=== PATIENT | male | born 1995 | race Caucasian/White ===

== ENCOUNTER 2018-05-26 10:21 | Emergency (ER) | payer SELFPAY ==
[2018-05-26] MEDS ORDERED: NA CHLORIDE 0.9% 1,000 ML ONE (10:47)
[2018-05-26 11:02] LABS: Absolute Lymphocytes (CBC) 1.4 K/uL (0.7-4.9); Absolute Monocytes 0.5 K/uL (0.1-1.3); Absolute Neutrophil 4.7 K/uL (1.8-8.0); Basophils % 0.4 % (0-1.3); Eosinophils % 1.9 % (0-4.4); Lymphocytes % 19.9 % (15.3-44.8); MCH 31.4 pg (27.0-35.0); MCV 91.1 fL (80-100); MPV 9.5 fL (7.6-11.3); Monocytes % 7.8 % (3.3-12.3); RBC Red Blood Cell Count 4.83 M/uL (4.33-5.43)
--- NOTE | 2018-05-26 11:04 | RAD REPORT ---
EXAM DESCRIPTION: RAD - Chest Single View - 05/26/2018 10:51 am CLINICAL HISTORY: COUGH Chest pain. COMPARISON: No comparisons FINDINGS: Portable technique limits examination quality. The lungs are grossly clear. The heart is normal in size. No displaced fractures. IMPRESSION: No acute intrathoracic process suspected.
[2018-05-26 11:17] LABS: ALT/SGPT 20 U/L (12-78); AST/SGOT 13 U/L (15-37); Albumin 4.1 g/dL (3.4-5.0); Alkaline Phosphatase 73 U/L (45-117); BUN Blood Urea Nitrogen 15 mg/dL (7-18); Bicarbonate 25 mmol/L (21-32); Bilirubin Direct 0.2 mg/dL (0-0.2); Bilirubin Total 0.6 mg/dL (0.2-1.0); CKMB Creatine Kinase MB < 1.0 ng/mL (0.3-3.6); Creatine Phosphokinase 50 U/L (39-308); Glucose Level 90 mg/dL (74-106); Magnesium 2.3 mg/dL (1.8-2.4); Potassium 3.7 mmol/L (3.5-5.1); Protein, Total 7.4 g/dL (6.4-8.2); Sodium Level 137 mmol/L (136-145); Troponin (Emerg Dept Use Only) < 0.02 ng/mL (0.0-0.045)
--- NOTE | 2018-05-26 11:22 | EDPHYS ---
Physician Documentation [facility] Name: Jd Baker Age: 23 yrs Sex: Male : 1995 Arrival Date: 05/26/2018 Time: 10:21 Bed 17 Private MD: ED Physician Bert Wilkinson HPI: 05/26 10:27 This 23 yrs old Male presents to ER via EMS with complaints of Heat Exposure. ro 10:27 The patient presents with an injury, pain, swelling, tenderness. The complaints affect ro the left Achilles. Context: The problem was sustained at home, resulted from an unknown cause. Onset: The symptoms/episode began/occurred 2 month(s) ago. Modifying factors: The symptoms are alleviated by elevating leg, remaining still, the symptoms are aggravated by movement, bending knee. Associated signs and symptoms: The patient has no apparent associated signs or symptoms. Severity of symptoms: At their worst the symptoms were mild, moderate, in the emergency department the symptoms are unchanged. Historical: - Allergies: 10:25 No Known Allergies; hb - Home Meds: 10:25 None [Active]; hb - PMHx: 10:25 None; hb - PSHx: 10:25 None; hb - Immunization history:: Adult Immunizations up to date. - Social history:: Smoking status: Patient/guardian denies using tobacco. - Ebola Screening: : No symptoms or risks identified at this time. - Family history:: not pertinent. ROS: 11:20 Constitutional: Negative for fever, chills, and weight loss, Eyes: Negative for injury, ro pain, redness, and discharge, ENT: Negative for injury, pain, and discharge, Neck: Negative for injury, pain, and swelling, Cardiovascular: Negative for chest pain, palpitations, and edema, Respiratory: Negative for shortness of breath, cough, wheezing, and pleuritic chest pain, Abdomen/GI: Negative for abdominal pain, nausea, vomiting, diarrhea, and constipation, Back: Negative for injury and pain, : Negative for injury, bleeding, discharge, and swelling, MS/Extremity: Negative for injury and deformity, Skin: Negative for injury, rash, and discoloration, Psych: Negative for depression, anxiety, suicide ideation, homicidal ideation, and hallucinations, Allergy/Immunology: Negative for hives, rash, and allergies, Endocrine: Negative for neck swelling, polydipsia, polyuria, polyphagia, and marked weight changes, Hematologic/Lymphatic: Negative for swollen nodes, abnormal bleeding, and unusual bruising. 11:20 Neuro: Positive for dizziness, weakness. Exam: 11:20 Constitutional: This is a well developed, well nourished patient who is awake, alert, ro and in no acute distress. Head/Face: Normocephalic, atraumatic. Eyes: Pupils equal round and reactive to light, extra-ocular motions intact. Lids and lashes normal. Conjunctiva and sclera are non-icteric and not injected. Cornea within normal limits. Periorbital areas with no swelling, redness, or edema. ENT: Nares patent. No nasal discharge, no septal abnormalities noted. Tympanic membranes are normal and external auditory canals are clear. Oropharynx with no redness, swelling, or masses, exudates, or evidence of obstruction, uvula midline. Mucous membranes moist. Neck: Trachea midline, no thyromegaly or masses palpated, and no cervical lymphadenopathy. Supple, full range of motion without nuchal rigidity, or vertebral point tenderness. No Meningismus. Chest/axilla: Normal chest wall appearance and motion. Nontender with no deformity. No lesions are appreciated. Cardiovascular: Regular rate and rhythm with a normal S1 and S2. No gallops, murmurs, or rubs. Normal PMI, no JVD. No pulse deficits. Respiratory: Lungs have equal breath sounds bilaterally, clear to auscultation and percussion. No rales, rhonchi or wheezes noted. No increased work of breathing, no retractions or nasal flaring. Abdomen/GI: Soft, non-tender, with normal bowel sounds. No distension or tympany. No guarding or rebound. No evidence of tenderness throughout. Back: No spinal tenderness. No costovertebral tenderness. Full range of motion. Male : Normal genitalia with no discharge or lesions. Skin: Warm, dry with normal turgor. Normal color with no rashes, no lesions, and no evidence of cellulitis. MS/ Extremity: Pulses equal, no cyanosis. Neurovascular intact. Full, normal range of motion. Neuro: Awake and alert, GCS 15, oriented to person, place, time, and situation. Cranial nerves II-XII grossly intact. Motor strength 5/5 in all extremities. Sensory grossly intact. Cerebellar exam normal. Normal gait. Psych: Awake, alert, with orientation to person, place and time. Behavior, mood, and affect are within normal limits. 11:20 Musculoskeletal/extremity: DVT Exam: No signs of deep vein thrombosis. no pain, no swelling, no tenderness, negative Homans' sign noted on exam, no appreciated bluish discoloration, no erythema, no increased warmth. Vital Signs: 10:24 BP 108 / 79; Pulse 72; Resp 16; Temp 98.1; Pulse Ox 100% on R/A; Pain 0/10; hb 11:21 BP 108 / 83; Pulse 66; Resp 14; Pulse Ox 100% on R/A; hb MDM: 10:24 Patient medically screened. [facility] 05/26 10:27 Order name: Basic Metabolic Panel; Complete Time: 11:19 [facility] 05/26 10:27 Order name: CBC with Diff; Complete Time: 11:19 [facility] 05/26 10:27 Order name: Ckmb; Complete Time: 11:19 [facility] 05/26 10:27 Order name: CPK; Complete Time: 11:19 [facility] 05/26 10:27 Order name: LFT's; Complete Time: 11:19 05/26 10:27 Order name: Magnesium; Complete Time: 11:19 [facility] 05/26 10:27 Order name: Troponin (emerg Dept Use Only); Complete Time: 11:19 [facility] 05/26 10:27 Order name: XRAY Chest (1 view); Complete Time: 11:19 [facility] 05/26 10:27 Order name: EKG; Complete Time: 10:27 [facility] 05/26 10:27 Order name: Cardiac monitoring; Complete Time: 10:51 [facility] 05/26 10:27 Order name: EKG - Nurse/Tech; Complete Time: 12:08 ro 05/26 10:27 Order name: IV Saline Lock; Complete Time: 10:36 [facility] 05/26 10:27 Order name: Labs collected and sent; Complete Time: 10:36 [facility] 05/26 10:27 Order name: O2 Per Protocol; Complete Time: 10:36 [facility] 05/26 10:27 Order name: O2 Sat Monitoring; Complete Time: 10:36 [facility] 05/26 10:27 Order name: Wound dressing; Complete Time: 10:31 [facility] Administered Medications: 10:31 CANCELLED (Duplicate Order): fentaNYL (PF) 25 mcg IVP once ro 10:31 CANCELLED (Duplicate Order): fentaNYL (PF) 25 mcg IVP once ro 10:31 CANCELLED (Duplicate Order): Zofran 4 mg IVP once; over 2 minutes ro 10:33 CANCELLED (Duplicate Order): NS 0.9% 500 ml IV at bolus once ro 10:50 Drug: NS 0.9% 1000 ml Route: IV; Rate: 1 bolus; Site: left antecubital; hb 11:45 Follow up: Response: No adverse reaction; IV Status: Completed infusion hb Disposition: 05/26/18 11:21 Discharged to Home. Impression: Heat fatigue, transient, Heat exhaustion, unspecified. - Condition is Stable. - Discharge Instructions: Fatigue, Heat Exhaustion Information. - Medication Reconciliation Form, Thank You Letter, Antibiotic Education, Prescription Opioid Use form. - Follow up: Private Physician; When: 2 - 3 days; Reason: Recheck today's complaints, Continuance of care, Re-evaluation by your physician. - Problem is new. - Symptoms have improved. Signatures: Dispatcher [employer] [facility] Bert Wilkinson MD MD cha Baxter, Heather, RN RN Corrections: (The following items were deleted from the chart) 10:31 10:27 fentaNYL (PF) 25 mcg IVP once ordered. ro ro 10:31 10:27 fentaNYL (PF) 25 mcg IVP once ordered. ro ro 10:31 10:27 Zofran 4 mg IVP once; over 2 minutes ordered. ro ro 10:32 10:27 Constitutional: Negative for fever, chills, and weight loss, Eyes: Negative for ro injury, pain, redness, and discharge, ENT: Negative for injury, pain, and discharge, Neck: Negative for injury, pain, and swelling, Cardiovascular: Negative for chest pain, palpitations, and edema, ro 10:33 10:27 NS 0.9% 500 ml IV at bolus once ordered. [facility] 10:38 10:27 Extremity Venous [employer]+[email or web address].[email or web address] ordered. [facility] 11:46 11:21 05/26/2018 11:21 Discharged to Home. Impression: Heat fatigue, transient; Heat hb exhaustion, unspecified. Condition is Stable. Forms are Medication Reconciliation Form, Thank You Letter, Antibiotic Education, Prescription Opioid Use. Follow up: Private Physician; When: 2 - 3 days; Reason: Recheck today's complaints, Continuance of care, Re-evaluation by your physician. Problem is new. Symptoms have improved. ro
--- NOTE | 2018-05-26 11:22 | ER ---
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 Initial BP 98/56, HR 110, improved to BP 111/61, HR 82 after NS 500ml bolus. BGL 115. Transition of care: patient was not received from another setting of care. Onset of symptoms was May 26, 2018. Risk Assessment: Do you want to hurt yourself or someone else? Patient reports no desire to harm self or others. Initial Sepsis Screen: Does the patient meet any 2 criteria? No. Patient's initial sepsis screen is negative. Does the patient have a suspected source of infection? No. Patient's initial sepsis screen is negative. Care prior to arrival: Medication(s) given: Normal saline infusion, 500 mL, IV initiated. 20 GA, in the right hand, Glucose check: 115. 10:21 Method Of Arrival: EMS: [facility] 10:21 Acuity: AMOR 3 hb Triage Assessment: 10:25 General: Appears in no apparent distress. Behavior is calm, cooperative. Pain: Denies hb pain. EENT: No signs and/or symptoms were reported regarding the EENT system. Neuro: Level of Consciousness is awake, alert, obeys commands, Oriented to person, place, time, situation. Cardiovascular: Heart tones S1 S2 present Capillary refill < 3 seconds Patient's skin is warm and dry. Respiratory: Airway is patent Respiratory effort is even, unlabored, Respiratory pattern is regular, symmetrical, Breath sounds are clear bilaterally. GI: No signs and/or symptoms were reported involving the gastrointestinal system. : No signs and/or symptoms were reported regarding the genitourinary system. Derm: Skin is pink, warm \T\ dry. Musculoskeletal: No signs and/or symptoms reported regarding the musculoskeletal system. Historical: - Allergies: 10:25 No Known Allergies; hb - Home Meds: 10:25 None [Active]; hb - PMHx: 10:25 None; hb - PSHx: 10:25 None; hb - Immunization history:: Adult Immunizations up to date. - Social history:: Smoking status: Patient/guardian denies using tobacco. - Ebola Screening: : No symptoms or risks identified at this time. - Family history:: not pertinent. Screenin:25 Abuse screen: Denies threats or abuse. Denies injuries from another. Nutritional hb screening: No deficits noted. Tuberculosis screening: No symptoms or risk factors identified. Fall Risk None identified. Assessment: 11:18 Reassessment: Patient appears in no apparent distress at this time. Patient and/or hb family updated on plan of care and expected duration. Pain level reassessed. Patient is alert, oriented x 3, equal unlabored respirations, skin warm/dry/pink. Patient denies pain at this time. Patient states feeling better. Vital Signs: 10:24 BP 108 / 79; Pulse 72; Resp 16; Temp 98.1; Pulse Ox 100% on R/A; Pain 0/10; hb 11:21 BP 108 / 83; Pulse 66; Resp 14; Pulse Ox 100% on R/A; hb ED Course: 10:21 Patient arrived in ED. hb 10:24 Triage completed. hb 10:24 Bert Wilkinson MD is Attending Physician. ro 10:24 Arm band placed on left wrist. hb 10:30 Patient has correct armband on for positive identification. Bed in low position. Call hb light in reach. Side rails up X 1. 10:30 Maintain EMS IV. Dressing intact. Good blood return noted. Site clean \T\ dry. Gauge \T\ hb site: 20g RIGHT Hand. 10:33 Initial lab(s) drawn, by me, sent to lab. dh3 10:39 Mackenzie Vega, RN is Primary Nurse. hb 10:48 X-ray completed. Portable x-ray completed in exam room. Patient tolerated procedure jb2 well. 10:51 XRAY Chest (1 view) In Process Unspecified. EDMS 11:01 EKG done, by urgent care technician. reviewed by Bert Wilkinson MD. at1 11:45 No provider procedures requiring assistance completed. IV discontinued, intact, hb bleeding controlled, No redness/swelling at site. Pressure dressing applied. Administered Medications: 10:31 CANCELLED (Duplicate Order): fentaNYL (PF) 25 mcg IVP once ro 10:31 CANCELLED (Duplicate Order): fentaNYL (PF) 25 mcg IVP once ro 10:31 CANCELLED (Duplicate Order): Zofran 4 mg IVP once; over 2 minutes ro 10:33 CANCELLED (Duplicate Order): NS 0.9% 500 ml IV at bolus once ro 10:50 Drug: NS 0.9% 1000 ml Route: IV; Rate: 1 bolus; Site: left antecubital; hb 11:45 Follow up: Response: No adverse reaction; IV Status: Completed infusion hb Outcome: 11:21 Discharge ordered by . [facility] 11:45 Discharged to home ambulatory. hb 11:45 Condition: stable 11:45 Discharge instructions given to patient, Instructed on discharge instructions, follow up and referral plans. medication usage, Demonstrated understanding of instructions, follow-up care, medications. 11:46 Patient left the ED. Signatures: Dispatcher [employer] EDMS Bert Wilkinson MD MD cha Buechter, Jesse jb2 Inez Jeffers, digester capper EKG Tat1 Mackenzie Vega, EVON RN Delphine Henry 3
--- NOTE | 2018-05-26 19:25 | EKG ---
Test Date: 2018-05-26 Test Time: 10:57:54 Bending Roll Hand: TAMIA MEASUREMENT RESULTS: Intervals: Rate: 70 AR: 140 QRSD: 94 QT: 386 QTc: 416 Willis: P: 79 AR: 140 QRS: 95 T: 70 INTERPRETIVE STATEMENTS: Sinus rhythm with occasional premature ventricular complexes Rightward axis Borderline ECG No previous ECG available for comparison Electronically Signed On 05-26-18 19:22:53 CDT by Kimani Hayward
== END 2018-05-26 11:46 | disposition home or self-care (01) ==
LOC: ER 10:21
DX: T67.5XXA Heat exhaustion, unspecified, initial encounter (principal); T67.6XXA Heat fatigue, transient, initial encounter; X58.XXXA Exposure to other specified factors, initial encounter; Y93.9 Activity, unspecified; Y92.69 Other specified industrial and construction area as the place of occurrence of the external cause; Y99.0 Civilian activity done for income or pay
CPT/HCPCS: 36415; 71045; 80048; 80076; 82550; 82553; 83735; 84484; 85025; 93005; 96360; 99284; J7030

== ENCOUNTER 2024-12-21 21:31 | Emergency (ER) | payer SELFPAY ==
[2024-12-21] MEDS ORDERED: predniSONE 20 MG TAB ONE (22:34)
[2024-12-21] MEDS ORDERED: DIPHENHYDRAMINE 25 MG TAB/CAP ONE (22:34)
[2024-12-21] MEDS ORDERED: FAMOTIDINE 20 MG TAB ONE (22:35)
[2024-12-21 23:34] LABS: Influenza A Ag Negative; Influenza B Ag Negative; SARS-CoV-2 Antigen Rapid Res Negative (Negative)
--- NOTE | 2024-12-21 23:48 | ER ---
Nurse's Notes [facility] Name: Jd Baker Age: 29 yrs Sex: Male : 1995 Arrival Date: 12/21/2024 Time: 21:31 Bed 11 Private MD: Diagnosis: Viral infection, unspecified;Rash and other nonspecific skin eruption Presentation: 12/21 21:46 Chief complaint: Patient states: SORE THROAT, COUGH AND RUNNY NOSE THAT BEGAN SATURDAY. dd2 RED RASH TO NECK AND CHEST THAT HE NOTICED TODAY. DENIES PAIN OR ITCHING. DENIES TAKING ANY MEDICATIONS. Coronavirus screen: cough unrelated to allergies, runny nose, sore throat. Ebola Screen: No symptoms or risks identified at this time. Initial Sepsis Screen: Does the patient meet any 2 criteria? No. Patient's initial sepsis screen is negative. Does the patient have a suspected source of infection? No. Patient's initial sepsis screen is negative. Risk Assessment: Do you want to hurt yourself or someone else? Patient reports no desire to harm self or others. Onset of symptoms was December 20, 2024. 21:46 Method Of Arrival: Ambulatory dd2 21:46 Acuity: AMOR 3 dd2 Triage Assessment: 21:50 General: Appears in no apparent distress. Behavior is calm, cooperative, appropriate dd2 for age. Pain: Complains of pain in throat Pain does not radiate. Pain currently is 3 out of 10 on a pain scale. EENT: Throat is reddened Reports difficulty swallowing pain when swallowing Pain is 3 out of 10 on a pain scale. Neuro: No deficits noted. Parks Agitation-Sedation Scale (RASS): 0 - Alert and Calm Level of Consciousness is awake, alert, obeys commands, Oriented to person, place, time, situation, Appropriate for age. Cardiovascular: No deficits noted. JVD is absent Patient's skin is warm and dry. Respiratory: Reports cough that is productive, Airway is patent Respiratory effort is even, unlabored, Respiratory pattern is regular, symmetrical. GI: No deficits noted. No signs and/or symptoms were reported involving the gastrointestinal system. Abdomen is flat, Abd is soft and non tender X 4 quads. : No deficits noted. No signs and/or symptoms were reported regarding the genitourinary system. Derm: Rash noted that is red, on chest and neck. Musculoskeletal: No deficits noted. No signs and/or symptoms reported regarding the musculoskeletal system. Circulation, motion, and sensation intact. Range of motion: intact in all extremities. Historical: - Allergies: 21:50 No Known Allergies; dd2 - PMHx: 21:50 None; dd2 - PSHx: 21:50 None; dd2 - Immunization history:: Adult Immunizations up to date, Client reports receiving the 2nd dose of the Covid vaccine, Client reports receiving the 1st dose of the Covid vaccine, Flu vaccine is not up to date. Patient has never been vaccinated. - Infectious Disease History:: Denies. - Social history:: Smoking status: Reported history of juuling and/or vaping. Screenin:13 [facility] ED Fall Risk Assessment (Adult) History of falling in the last 3 months, dd2 including since admission No falls in past 3 months (0 pts) Confusion or Disorientation No (0 pts) Intoxicated or Sedated No (0 pts) Impaired Gait No (0 pts) Mobility Assist Device Used No (0 pt) Altered Elimination No (0 pt) Score/Fall Risk Level 0 - 2 = Low Risk Oriented to surroundings, Maintained a safe environment, Educated pt \T\ family on fall prevention, incl call for assistance when getting out of bed, Assessed \T\ reinforced patient's understanding of fall precautions, Hourly rounding (assess needs \T\ fall precautionary measures) done. Abuse screen: Denies threats or abuse. Denies injuries from another. Nutritional screening: No deficits noted. Tuberculosis screening: No symptoms or risk factors identified. Assessment: 22:13 Reassessment: SEE TRIAGE ASSESSMENT FOR FULL ASSESSMENT. dd2 23:43 Reassessment: Patient appears in no apparent distress at this time. No changes from bm8 previously documented assessment. Patient and/or family updated on plan of care and expected duration. Pain level reassessed. Patient is alert, oriented x 3, equal unlabored respirations, skin warm/dry/pink. Patient denies pain at this time. General: Appears in no apparent distress. comfortable, Behavior is calm, cooperative, appropriate for age. Pain: Denies pain. Neuro: No deficits noted. Level of Consciousness is awake, alert, obeys commands, Oriented to person, place, time, situation, Appropriate for age. Cardiovascular: Denies chest pain, Capillary refill < 3 seconds in bilateral fingers Patient's skin is warm and dry. Respiratory: Airway is patent Respiratory effort is even, unlabored, Respiratory pattern is regular, symmetrical. Derm: Rash noted that is red. Vital Signs: 21:46 BP 120 / 83; Pulse 89; Resp 16; Temp 99.2(O); Pulse Ox 99% on R/A; Weight 61.23 kg; dd2 Height 5 ft. 8 in. ; 23:43 BP 122 / 68; Pulse 63; Resp 18; Temp 99.2; Pulse Ox 99% ; Pain 0/10; bm8 21:46 Body Mass Index 20.53 (61.23 kg, 172.72 cm) dd2 23:43 Pain Scale: Adult bm8 Ashley Coma Score: 22:13 Eye Response: spontaneous(4). Motor Response: obeys commands(6). Verbal Response: dd2 oriented(5). Total: 15. 23:43 Eye Response: spontaneous(4). Motor Response: obeys commands(6). Verbal Response: bm8 oriented(5). Total: 15. ED Course: 21:38 Patient arrived in ED. gm2 21:38 Katherin Mayorga PA-C is PHCP. sb4 21:38 Sylvester Gaspar MD is Attending Physician. sb4 21:50 Triage completed. dd2 21:50 Arm band placed on right wrist. dd2 22:12 JEFE MERCADO, RN is Primary Nurse. dd2 22:13 Patient has correct armband on for positive identification. Bed in low position. Call dd2 light in reach. Side rails up X 1. Client placed on continuous cardiac and pulse oximetry monitoring. NIBP monitoring applied. Door closed. Noise minimized. Pillow given. Verbal reassurance given. 22:13 No provider procedures requiring assistance completed. Patient maintains SpO2 dd2 saturation greater than 95% on room air. 23:04 COVID swab sent to lab. Flu and/or RSV swab sent to lab. Strep swab sent to lab. bm8 23:43 Provided Education on: post er care. bm8 23:43 Patient did not have IV access during this emergency room visit. bm8 Administered Medications: 22:54 Drug: diphenhydrAMINE PO 25 mg PO once Route: PO; bm8 23:35 Follow up: Response: No adverse reaction bm8 22:54 Drug: predniSONE PO 20 mg PO once Route: PO; bm8 23:35 Follow up: Response: No adverse reaction bm8 22:54 Drug: Famotidine PO 20 mg PO once Route: PO; bm8 23:35 Follow up: Response: No adverse reaction bm8 Medication: 22:13 VIS not applicable for this client. dd2 Outcome: 23:43 Discharged to home ambulatory, bm8 23:43 Condition: stable 23:43 Discharge instructions given to patient, Instructed on discharge instructions, follow up and referral plans. no drinking with medication, no driving heavy equipment, medication usage, safety practices, Demonstrated understanding of instructions, follow-up care, medications, Prescriptions given X 23:47 Discharge ordered by MD. sb4 23:50 Prescriptions given X 3, bm8 23:50 Patient left the ED. 8 Signatures: Katherin Mayorga PA-C PA-C sb4 Helga Welch gm2 Fausto Navarro RN RN bm8 JEFE MERCADO RN RN dd2
--- NOTE | 2024-12-21 23:48 | EDPHYS ---
Physician Documentation [facility] Name: Jd Baekr Age: 29 yrs Sex: Male : 1995 Arrival Date: 12/21/2024 Time: 21:31 Bed 11 Private MD: ED Physician Sylvester Gaspar HPI: 12/21 22:37 This 29 yrs old Male presents to ER via Ambulatory with complaints of Runny Nose, Rash, sb4 Cough. 22:37 Patient reports sore throat, mild cough, and runny nose for the past few days. He sb4 states that he noticed a rash on his chest and upper neck this evening. Denies any fever. He is concerned for measles or scarlet fever so came to the ED for further evaluation. States the rash does not itch. Denies any new detergents, lotions, clothing.. Historical: - Allergies: 21:50 No Known Allergies; dd2 - PMHx: 21:50 None; dd2 - PSHx: 21:50 None; dd2 - Immunization history:: Adult Immunizations up to date, Client reports receiving the 2nd dose of the Covid vaccine, Client reports receiving the 1st dose of the Covid vaccine, Flu vaccine is not up to date. Patient has never been vaccinated. - Infectious Disease History:: Denies. - Social history:: Smoking status: Reported history of juuling and/or vaping. ROS: 22:37 Constitutional: Negative for fever, chills, and weight loss, sb4 22:37 ENT: Positive for sore throat, 22:37 Respiratory: Positive for cough, 22:37 Skin: Positive for rash, of the back, chest, abdomen and neck, 22:37 All other systems are negative, Exam: 22:38 Constitutional: This is a well developed, well nourished patient who is awake, alert, sb4 and in no acute distress. Head/Face: Normocephalic, atraumatic. Eyes: Extra-ocular motions intact. Periorbital areas with no swelling, redness, or edema. Respiratory: No increased work of breathing, no retractions or nasal flaring. 22:38 ENT: Posterior pharynx: erythema, that is moderate, exudate, is not appreciated, 22:38 Skin: rash can be described as macular, on the abdomen and back and chest and neck, Vital Signs: 21:46 BP 120 / 83; Pulse 89; Resp 16; Temp 99.2(O); Pulse Ox 99% on R/A; Weight 61.23 kg; dd2 Height 5 ft. 8 in. ; 23:43 BP 122 / 68; Pulse 63; Resp 18; Temp 99.2; Pulse Ox 99% ; Pain 0/10; bm8 21:46 Body Mass Index 20.53 (61.23 kg, 172.72 cm) dd2 23:43 Pain Scale: Adult bm8 Ashley Coma Score: 22:13 Eye Response: spontaneous(4). Motor Response: obeys commands(6). Verbal Response: dd2 oriented(5). Total: 15. 23:43 Eye Response: spontaneous(4). Motor Response: obeys commands(6). Verbal Response: bm8 oriented(5). Total: 15. MDM: 21:39 Medical Screening Exam initiated sb4 23:47 Data reviewed: vital signs, nurses notes, lab test result(s), and as a result, I will sb4 discharge patient. Counseling: I had a detailed discussion with the patient and/or guardian regarding the historical points, exam findings, and any diagnostic results supporting the discharge/admit diagnosis, lab results, the need for outpatient follow up, for definitive care, to return to the emergency department if symptoms worsen or persist or if there are any questions or concerns that arise at home. 12/21 22:16 Order name: Group A Streptococcus Rapid; Complete Time: 23:37 [facility] 12/21 22:16 Order name: COVID-19 Ag + Flu A+B Ag; Complete Time: 23:37 4 12/21 23:36 Order name: Throat Culture EDMS Administered Medications: 22:54 Drug: diphenhydrAMINE PO 25 mg PO once Route: PO; bm8 23:35 Follow up: Response: No adverse reaction bm8 22:54 Drug: predniSONE PO 20 mg PO once Route: PO; bm8 23:35 Follow up: Response: No adverse reaction bm8 22:54 Drug: Famotidine PO 20 mg PO once Route: PO; bm8 23:35 Follow up: Response: No adverse reaction bm8 Disposition: 12/22 03:47 Co-signature as Attending Physician, Sylvester Gaspar MD I agree with the assessment sp4 and plan of care. I reviewed the patient's care provided by the Advanced Practice Provider and agree with the diagnosis and treatment plan. Disposition Summary: 12/21/24 23:47 Discharge Ordered Notes: Location: Home sb4 Problem: new sb4 Symptoms: are unchanged sb4 Condition: Stable sb4 Diagnosis - Viral infection, unspecified sb4 - Rash and other nonspecific skin eruption sb4 Followup: sb4 - With: Emergency Department - When: As needed - Reason: Trouble breathing, Worsening of condition Discharge Instructions: - Discharge Summary Sheet sb4 - Rash, Adult, [id number] sb4 - Viral Illness, Adult sb4 Forms: - Patient Portal Instructions sb4 - Leadership Thank You Letter sb4 Prescriptions: - Pepcid 20 mg Oral Tablet - take 1 tablet ORAL route every 12 hours for 5 days; 10 tablet; Refills: 0, sb4 Product Selection Permitted - Loratadine 10 mg Oral Tablet - take 1 tablet ORAL route once daily; 14 tablet; Refills: 0, Product Selection sb4 Permitted - Medrol (Hank) 4 mg Oral Tablets, Dose Pack - take 1 tablet ORAL route as directed - follow package instructions; 1 packet; sb4 Refills: 0, Product Selection Permitted Signatures: Dispatcher [employer] Katherin Tolentino PA-C PADouglas sb4 Sylvester Gaspar MD MD sp4 Fausto Navarro RN RN bm8 JEFE MERCADO RN RN dd2
[2024-12-21 23:58] VITALS: TEMP 99.2; O2SAT 99
[2024-12-21 23:59] VITALS: BP 122/68
== END 2024-12-21 23:50 | disposition home or self-care (01) ==
LOC: ER 21:31
DX: B34.9 Viral infection, unspecified (principal); R21 Rash and other nonspecific skin eruption; Z11.52 Encounter for screening for COVID-19
CPT/HCPCS: 36415; 87070; 87428; 99284; J7512